=== PATIENT | male | born 1980 | race Caucasian/White ===

== ENCOUNTER → 2018-09-26 | Outpatient (REF) | payer OTHER ==
[2018-09-26 16:51] LABS: APPEARANCE, URINE CLEAR (CLEAR); BACTERIA, URINE AUTO NEGATIVE (NEGATIVE); BILIRUBIN, URINE AUTO NEGATIVE (NEGATIVE); BLOOD, URINE BLOOD NEGATIVE (NEGATIVE); COLOR, URINE STRAW (YELLOW); GLUCOSE, URINE (UA) AUTO NEGATIVE (NEGATIVE); KETONE, URINE AUTO NEGATIVE (NEGATIVE); LEUKOCYTE ESTERASE, URINE AUTO NEGATIVE (NEGATIVE); NITRITE, URINE AUTO NEGATIVE (NEGATIVE); PROTEIN, URINE AUTO NEGATIVE (NEGATIVE); RBC, URINE AUTO 0 /HPF (0-3); SPECIFIC GRAVITY URINE AUTO 1.002 (1.002-1.035); SQUAMOUS EPITHELIAL CELL UR AU 0 /HPF (0-6); UROBILINOGEN, URINE AUTO 0.2 mg/dL (0.0-2.0); WBC, URINE AUTO 0 /HPF (0-3)
[2018-09-26 17:03] LABS: ALBUMIN 3.4 GM/DL (3.2-5.2); ALT/SGPT 12 U/L (12-78); BILIRUBIN,TOTAL 0.3 MG/DL (0.2-1.0); BLOOD UREA NITROGEN 6 MG/DL (7-18); CALCIUM LEVEL 8.2 MG/DL (8.5-10.1); CARBON DIOXIDE LEVEL 28 MEQ/L (21-32); CHLORIDE LEVEL 107 MEQ/L (98-107); CHOLESTEROL LEVEL 151 MG/DL (<200); CHOLESTEROL RISK RATIO 2.849 (<5); CREATININE FOR GFR 0.96 MG/DL (0.70-1.30); GLOMERULAR FILTRATION RATE > 60.0 (>60); GLUCOSE, FASTING 85 MG/DL (70-100); HDL CHOLESTEROL 53 MG/DL (>40); LDL CHOLESTEROL 82 MG/DL (<100); NON-HDL-C 98 MG/DL; POTASSIUM SERUM 4.3 MEQ/L (3.5-5.1); SODIUM LEVEL 140 MEQ/L (136-145); TOTAL PROTEIN 7.5 GM/DL (6.4-8.2); TRIGLYCERIDES LEVEL 79 MG/DL (<150)
[2018-09-26 18:20] LABS: CHLAMYDIA DNA AMPLIFICATION NEGATIVE (NEGATIVE); GC DNA AMPLIFICATION NEGATIVE (NEGATIVE)
[2018-09-29 00:06] LABS: %CD4 Pos Lymphs 40.7 % (30.8-58.5); ABS Eosinophils 0.3 x10E3/uL (0.0-0.4); ABS Lymphs 3.1 x10E3/uL (0.7-3.1); ABS Monocytes 0.5 x10E3/uL (0.1-0.9); ABS Neutophils 4.8 x10E3/uL (1.4-7.0); Abs CD4 Helper 1262 /uL (359-1519); Abs CD8 Suppres 1519 /uL (109-897); CD4/CD8 Ratio 0.83 (0.92-3.72); Eosinophils 3 % (Not Estab.); HCT 41.7 % (37.5-51.0); HGB 13.5 g/dL (13.0-17.7); Immature Grans 0 % (Not Estab.); Lymphocytes 36 % (Not Estab.); MCH 29.3 pg (26.6-33.0); MCHC 32.4 g/dL (31.5-35.7); MCV 91 fL (79-97); Monocytes 6 % (Not Estab.); Neutrophils 55 % (Not Estab.); Platelets 344 x10E3/uL (150-379); RDW 15.8 % (12.3-15.4); WBC 8.7 x10E3/uL (3.4-10.8)
[2018-09-29 10:05] LABS: HEPATITIS B SURFACE ANTIBODY POSITIVE (POSITIVE)
[2018-09-29 10:16] LABS: HEPATITIS B SURFACE ANTIGEN NEGATIVE (NEGATIVE)
[2018-09-30 08:25] LABS: HEPATITIS A IgG TOTAL Negative (Negative); HEPATITIS B CORE ANTIBODY IGG Negative (Negative); RPR Reactive (Non Reactive)
[2018-10-01 00:58] LABS: HEPATITIS C QUANTITATION HCV Not Detected IU/mL (.); HIV-1 RNA PCR QUANT 2 LC550285 1400 copies/mL (.); HIV-1 RNA PCR QUANT 3 LC550285 3.146 (.)
== END ==
LOC: M SFHCPLAZ 09-22 12:29 → EDBD 14:15 → M SFHCPLAZ 14:15
PROVIDERS: ATTEND Internal Medicine Infectious Disease
DX: B20 Human immunodeficiency virus [HIV] disease (principal); Z86.19 Personal history of other infectious and parasitic diseases; Z13.220 Encounter for screening for lipoid disorders; K59.09 Other constipation

== ENCOUNTER → 2019-01-05 | Outpatient (REF) | payer OTHER ==
[2019-01-05 12:52] LABS: ALBUMIN 3.5 GM/DL (3.2-5.2); ALT/SGPT 14 U/L (12-78); BILIRUBIN,TOTAL 0.5 MG/DL (0.2-1.0); BLOOD UREA NITROGEN 11 MG/DL (7-18); CALCIUM LEVEL 8.9 MG/DL (8.5-10.1); CARBON DIOXIDE LEVEL 29 MEQ/L (21-32); CHLORIDE LEVEL 106 MEQ/L (98-107); CREATININE FOR GFR 1.03 MG/DL (0.70-1.30); GLOMERULAR FILTRATION RATE > 60.0 (>60); GLUCOSE, FASTING 82 MG/DL (70-100); POTASSIUM SERUM 4.7 MEQ/L (3.5-5.1); SODIUM LEVEL 140 MEQ/L (136-145); TOTAL PROTEIN 8.1 GM/DL (6.4-8.2)
[2019-01-08 00:06] LABS: % CD8 Pos Lymph 45.7 % (12.0-35.5); %CD4 Pos Lymphs 40.9 % (30.8-58.5); ABS Eosinophils 0.2 x10E3/uL (0.0-0.4); ABS Lymphs 2.6 x10E3/uL (0.7-3.1); ABS Monocytes 0.7 x10E3/uL (0.1-0.9); ABS Neutophils 4.8 x10E3/uL (1.4-7.0); Abs CD4 Helper 1063 /uL (359-1519); Abs CD8 Suppres 1188 /uL (109-897); CD4/CD8 Ratio 0.89 (0.92-3.72); Eosinophils 2 % (Not Estab.); HCT 42.9 % (37.5-51.0); HGB 14.7 g/dL (13.0-17.7); HIV-1 RNA PCR QUANT 2 LC550285 <20 copies/mL (.); HSV TYPE II IgG SPECIFIC 7.95 index (0.00-0.90); Immature Grans 0 % (Not Estab.); Lymphocytes 32 % (Not Estab.); MCH 29.7 pg (26.6-33.0); MCHC 34.3 g/dL (31.5-35.7); MCV 87 fL (79-97); Monocytes 8 % (Not Estab.); Neutrophils 58 % (Not Estab.); Platelets 326 x10E3/uL (150-450); RBC 4.95 x10E6/uL (4.14-5.80); RDW 15.4 % (12.3-15.4); RPR Reactive (Non Reactive); WBC 8.3 x10E3/uL (3.4-10.8)
== END ==
LOC: M LABDRAWP 10:27
PROVIDERS: ATTEND Internal Medicine Infectious Disease
DX: B20 Human immunodeficiency virus [HIV] disease (principal); A53.9 Syphilis, unspecified